=== PATIENT | female | born 1965 | race Caucasian/White ===

== ENCOUNTER 2017-01-26 12:08 | Emergency (ER) | payer BC ==
[2017-01-26 12:43] VITALS: BP 137/49
--- NOTE | 2017-01-26 13:07 | UC ---
Complaint Female HPI - HPI Summary HPI Summary: SINCE THIS AM, URINARY FREQUENCY URGENCY. NO FEVER. NO BACK PAIN. NO ABDOMINAL PAIN. LAST UTI 30YRS AGO. - History Of Current Complaint Chief Complaint: UCGU Stated Complaint: URINARY ISSUE Time Seen by Provider: 01/26/17 12:37 Hx Obtained From: Patient Hx Last Menstrual Period: 01/22/17 Onset/Duration: Sudden Onset, Lasting Hours, Still Present Timing: Intermittent Severity Initially: Mild Severity Currently: Mild Character: Dull Aggravating Factor(s): Urination Associated Signs And Symptoms: Negative: Fever, Back Pain, Nausea, Genital Swelling, Genital Blisters - Risk Factors Ectopic Risk Factor: Negative Ovarian Torsion Risk Factor: Negative - Allergies/Home Medications Allergies/Adverse Reactions: Allergies Allergy/AdvReac Type Severity Reaction Status Date / Time Latex Allergy Intermediate Rash And Verified 01/26/17 12:45 Itching Home Medications: Home Medications Hydrochlorothiazide TAB* [Hydrodiuril TAB*] 25 mg PO DAILY 01/26/17 [History Confirmed 01/26/17] Lactobacillus [Probiotic] 1 cap PO DAILY 01/26/17 [History Confirmed 01/26/17] Levothyroxine TAB* [Synthroid TAB*] 50 mcg PO DAILY 01/26/17 [History Confirmed 01/26/17] Lisinopril [Zestril 5 MG-] 5 mg PO DAILY 01/26/17 [History Confirmed 01/26/17] PMH/Surg Hx/FS Hx/Imm Hx Previously Healthy: Yes Endocrine History Of: Reports: 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 1990 C SECTION AND BTL [facility] [place]. 2006 [facility] [place] - Family History Known Family History: Negative: Renal Disease - Social History Occupation: Employed Full-time Lives: With Family Alcohol Use: None Substance Use Type: None Smoking Status (MU): Never Smoked Tobacco - Immunization History Most Recent Tetanus Shot: 07/2012 Review of Systems Constitutional: Negative Skin: Negative Eyes: Negative ENT: Negative Respiratory: Negative Cardiovascular: Negative Gastrointestinal: Negative Genitourinary: Dysuria, Frequency, Urgency Motor: Negative Neurovascular: Negative Musculoskeletal: Negative Neurological: Negative Psychological: Negative All Other Systems Reviewed And Are Negative: Yes Physical Exam Triage Information Reviewed: Yes Appearance: Well-Appearing, No Pain Distress, Well-Nourished Vital Signs: Initial Vital Signs Temp 98 F 01/26/17 12:31 Pulse 79 01/26/17 12:31 Resp 14 01/26/17 12:31 BP 137/49 01/26/17 12:31 Pulse Ox 100 01/26/17 12:31 Vital Signs Reviewed: Yes Eye Exam: Normal Eyes: Positive: Conjunctiva Clear ENT Exam: Normal ENT: Positive: Normal ENT inspection, Hearing grossly normal, Pharynx normal Dental Exam: Normal Neck exam: Normal Neck: Positive: Supple, Nontender, No Lymphadenopathy Respiratory Exam: Normal Respiratory: Positive: Chest non-tender, Lungs clear, Normal breath sounds, No respiratory distress, No accessory muscle use Cardiovascular Exam: Normal Cardiovascular: Positive: RRR, No Murmur, Pulses Normal, Brisk Capillary Refill Abdominal Exam: Normal Abdomen Description: Positive: Nontender, No Organomegaly, Soft. Negative: CVA Tenderness (R), CVA Tenderness (L) Musculoskeletal Exam: Normal Neurological Exam: Normal Psychological Exam: Normal Skin Exam: Normal Complaint Female Dx - Differential Dx/Diagnosis Differential Diagnosis/HQI/PQRI: Renal Colic, Urinary Tract Infection Provider Diagnoses: URINARY TRACT INFECTION Discharge - Discharge Plan Condition: Stable Disposition: HOME Prescriptions: Phenazopyridine TAB* [Pyridium 100 mg TAB*] 100 mg PO TID #15 tab Sulfamethox/Trimethoprim DS* [Bactrim DS 800/160 TAB*] 1 tab PO BID #10 tab Patient Education Materials: Urinary Tract Infection in Women (ED) Referrals: Ron Josue MD [Primary Care Provider] -
== END 2017-01-26 13:11 | disposition home or self-care (01) ==
LOC: UCEAST 12:08
DX: N39.0 Urinary tract infection, site not specified (principal); R73.03 Prediabetes; E03.9 Hypothyroidism, unspecified; I10 Essential (primary) hypertension; J45.909 Unspecified asthma, uncomplicated; Z90.49 Acquired absence of other specified parts of digestive tract; Z91.040 Latex allergy status
CPT/HCPCS: 81003; 87086; 99212; G0463

== ENCOUNTER 2018-05-10 10:07 | Emergency (ER) | payer BC ==
[2018-05-10 10:20] VITALS: BP 151/95
--- NOTE | 2018-05-10 10:33 | UC ---
Hip/Pelvis Pain - HPI Summary HPI Summary: A 52 y/o F presents to [facility] [place] with c/o ongoing R hip pain onset a few weeks ago. The pain is described as dull and throbbing when at rest, and becomes excruciating when she walks. The pain radiates to her buttocks and down her RLE. Pt has used heat/ice, IBP 600mg daily, to intermittent relief. Pt can ambulate but limps. Pt is on a workout regime, and has lost weight 60+ lbs over two years. She denies any trauma other than rolling one time while working out. Denies fever, chills. She states feeling healthy otherwise. She has knee pain at baseline. Denies recent tick exposure. - History Of Current Complaint Chief Complaint: UCLowerExtremity Stated Complaint: HIP PAIN Time Seen by Provider: 05/10/18 10:26 Hx Obtained From: Patient Hx Last Menstrual Period: 01/22/17 Onset/Duration: Lasting Weeks, Still Present Severity Currently: Moderate Pain Intensity: 6 Pain Scale Used: 0-10 Numeric Location: Discrete At: - R hip, Radiates To: - to buttocks and RLE Character Of Pain: Dull, Throbbing Aggravating Factor(s): Movement, Weight Bearing Alleviating Factor(s): Heat, Cold, OTC Medications Associated Signs And Symptoms: Negative: Fever, Knee Pain, Other - neg: chills - Allergies/Home Medications Allergies/Adverse Reactions: Allergies Allergy/AdvReac Type Severity Reaction Status Date / Time ciprofloxacin [From Cipro] Allergy Unknown Verified 05/10/18 10:20 Reaction Details latex Allergy Rash And Verified 05/10/18 10:20 Itching PMH/Surg Hx/FS Hx/Imm Hx Previously Healthy: No - pos: knee pain Endocrine History: Diabetes - pre-DM, Thyroid Disease - hypo Cardiovascular History: Hypertension Respiratory History: Asthma - Surgical History Surgical History: Yes Surgery Procedure, Year, and Place: 1986 C SECTION [facility] [place]. 1990 C SECTION AND BTL [facility] [place]. 2006 [facility] [place] - Family History Known Family History: Negative: Renal Disease - Social History Occupation: Employed Full-time Lives: With Family Alcohol Use: None Substance Use Type: None Smoking Status (MU): Never Smoked Tobacco - Immunization History Most Recent Tetanus Shot: 07/2012 Review of Systems Constitutional: Other - neg: fever, chills Musculoskeletal: Arthralgia - R hip pain All Other Systems Reviewed And Are Negative: Yes Physical Exam - Summary Physical Exam Summary: General: well-appearing, no pain distress Skin: warm, color reflects adequate perfusion, dry Head: normal Eyes: EOMI, ARMIDA ENT: normal Neck: supple, nontender Respiratory: CTA, breath sounds present Cardiovascular: RRR Abdomen: soft, nontender Bowel: present Musculoskeletal: Tenderness to palpation on R sciatic to distribution of buttock and with compression of the greater trochanter. Neurological: sensory/motor intact, A&O x3 Psychological: affect/mood appropriate Triage Information Reviewed: Yes Vital Signs: Initial Vital Signs Temp 98.3 F 05/10/18 10:16 Pulse 66 05/10/18 10:16 Resp 18 05/10/18 10:16 BP 151/95 05/10/18 10:16 Pulse Ox 100 05/10/18 10:16 Vital Signs Reviewed: Yes Diagnostics - Laboratory Diagnostic Studies Completed/Ordered: R HIP/PELVIS XR as read by radiologist: IMPRESSION: Negative exam. [facility] provider has reviewed this report. Re-Evaluation - Re-Evaluation 1 Re-Evaluation Time: 11:25 Change: Unchanged Comment: Discussing XR results with pt and plans for dispo. Pt voiced understanding. Hip Injury Course/Dx - Course Course Of Treatment: BP noted and advised to follow up with PCP. Medications reviewed. Allergies noted. NO WEAKNESS/NUMBNESS. DISCUSSED X-RAY RESULTS WITH THE PATIENT. DISCUSSED REST AND F/U PMD. - Differential Dx/Diagnosis Provider Diagnoses: RIGHT HIP PAIN. RIGHT SCIATICA. HTN Discharge - Sign-Out/Discharge Documenting (check all that apply): Patient Departure - DC All imaging exams completed and their final reports reviewed: Yes - Discharge Plan Condition: Stable Disposition: HOME Patient Education Materials: Sciatica (ED), Hip Pain (ED) Referrals: Maryam Egan [Primary Care Provider] - Additional Instructions: FOLLOW UP WITH YOUR DOCTOR. GET RECHECKED FOR ANY WORSENING OF YOUR CONDITION OR QUESTIONS OR CONCERNS. Your blood pressure was elevated during todays visit; please follow up with your primary care provider within a week for further evaluation. - Billing Disposition and Condition Condition: STABLE Disposition: Home - Attestation Statements Document Initiated by Scribe: Yes Documenting Scribe: Leonor GreerGalion Community Hospitalcam Provider For Whom Scribe is Documenting (Include Credential): Nick Davies MD Scribe Attestation: I, Leonor Moreno, scribed for Nick Davies MD on 05/10/18 at 1202. Scribe Documentation Reviewed: Yes Provider Attestation: The documentation as recorded by the bethanieibe, Leonor Moreno accurately reflects the service I personally performed and the decisions made by me, Nick Davies MD
--- NOTE | 2018-05-10 11:06 | RAD ---
INDICATION: Right hip pain. COMPARISON: Comparison is made with a prior study from October 10, 2013. TECHNIQUE: An AP view of the pelvis and frontal and lateral views of the right hip were obtained. FINDINGS: The bones are in normal alignment. No fracture is seen. Joint spaces appear maintained. IMPRESSION: NEGATIVE EXAM.
== END 2018-05-10 11:38 | disposition home or self-care (01) ==
LOC: UCEAST 10:07
DX: M25.551 Pain in right hip (principal); M54.31 Sciatica, right side; I10 Essential (primary) hypertension; M25.569 Pain in unspecified knee; Z88.1 Allergy status to other antibiotic agents; Z91.040 Latex allergy status
CPT/HCPCS: 99211; G0463

== ENCOUNTER 2018-09-07 12:52 | Emergency (ER) | payer BC ==
[2018-09-07 13:10] VITALS: BP 131/77
--- NOTE | 2018-09-07 13:22 | UC ---
General HPI - HPI Summary HPI Summary: Pt presents to stating x 3 days had had episodes of dizziness. Pt states first occured when woke up 3 days ago. States has reoccurred 7-8 times since. episodes < 20 min no nausea, vomiting. No cp, sob, abd pain. no fever, chills. no head congestion, ear pain, sore throat. no sick contacts. No h/o similar. Pt states sx worse when closed Pt called pcp yesterday, unable to get appt until next week. Pt without cardiac hx. Pt previous borderline htn, dm - recent lost 50+ pounds and conditions improved Pt's medications reviewed this visit - History of Current Complaint Chief Complaint: UCDizziness Stated Complaint: DIZZINESS Time Seen by Provider: 09/07/18 13:21 Hx Obtained From: Patient Hx Last Menstrual Period: 01/22/17 Pain Intensity: 0 - Allergy/Home Medications Allergies/Adverse Reactions: Allergies Allergy/AdvReac Type Severity Reaction Status Date / Time ciprofloxacin [From Cipro] Allergy Unknown Verified 09/07/18 14:28 Reaction Details latex Allergy Rash And Verified 09/07/18 14:28 Itching PMH/Surg Hx/FS Hx/Imm Hx Previously Healthy: Yes Endocrine History: Diabetes - pre-dm - improved with weightliss, Thyroid Disease Cardiovascular History: Hypertension - borderline - Surgical History Surgical History: Yes Surgery Procedure, Year, and Place: 1986 C SECTION [facility] [place]. 1990 C SECTION AND BTL [facility] [place]. 2006 [facility] [place]. knee surgery, meniscus - Family History Known Family History: Positive: Non-Contributory Negative: Renal Disease - Social History Lives: With Family Alcohol Use: Rare Substance Use Type: None Smoking Status (MU): Never Smoked Tobacco - Immunization History Most Recent Tetanus Shot: 07/2012 Review of Systems All Other Systems Reviewed And Are Negative: Yes Constitutional: Positive: Negative Skin: Positive: Negative Eyes: Positive: Negative ENT: Positive: Negative Respiratory: Positive: Negative Cardiovascular: Positive: Negative Gastrointestinal: Positive: Negative Genitourinary: Positive: Negative Musculoskeletal: Positive: Negative Neurological: Positive: Other - dizziness Psychological: Positive: Negative Physical Exam - Summary Physical Exam Summary: Vital Signs Reviewed: Yes A+Ox3, no distress Eyes: Conjunctiva Clear, ARMIDA. EOM intact and full, no nystagmus, unable to provoke sx ENT: Hearing grossly normal TM x 2 clear, tubinates wnl, mmoist, uvula midline , no exudate, no erythema Neck: Positive: Supple Respiratory: Positive: No respiratory distress, No accessory muscle use + CTA throughout no w/r Cardiovascular: RRR nl s1, s2 no m/r CBT <2 sec, no bruits abd soft + BS nt/nd no guarding, no distension Musculoskeletal Exam: WALL x 4 without difficulty Strength Intact, ROM Intact Neurological: Positive: Alert, + sensation throughout CN 2-12 intact and full + FNF b/l + heel/harvey b/l 5/5 abduction, flex/ext elbow, wrist against resistant 5/5 SLE, flex/ext knee, ankle + great toe extension + gross sensation throughout neg rhomberg Psychological: Positive: Normal Response To Family Skin: Positive: no rash, no ecchymosis Triage Information Reviewed: Yes Vital Signs: Initial Vital Signs Temp 97.6 F 09/07/18 13:07 Pulse 70 09/07/18 13:07 Resp 16 09/07/18 13:07 BP 131/77 09/07/18 13:07 Pulse Ox 100 09/07/18 13:07 Diagnostics - EKG Cardiac Rate: NL, Other Rate - einverted T wave V1-V4, 3 low amplitude Cardiac Rhythm: Sinus: Normal Course/Dx - Course Course Of Treatment: Pt with episodes of dizziness x 3 days. no current sx. pt denies other sx, or h/o similar. on exam, normal neuro exam, no nystagmus. FSBG 84. EKG with inverted T wave - no old for comparison. d/w pt at length - recommend ED assessment. Pt called to drive. report given Dr. West. pt in agreement - will transfer by PO - Diagnoses Provider Diagnosis: Dizziness Discharge - Sign-Out/Discharge Documenting (check all that apply): Patient Departure All imaging exams completed and their final reports reviewed: No Studies - Discharge Plan Condition: Stable Disposition: HOME-RECOMMEND TO ED Patient Education Materials: Dizziness (ED) Referrals: Maryam Junior NP [Primary Care Provider] - Additional Instructions: The doctor that evaluated you today thinks that you need additional testing that can be completed the emergency department. It is recommended that you go directly to emergency department for further evaluation. This evaluation may include blood work or imaging. This testing will be directed and decided by the provider that evaluate you at the emergency department. If pain becomes worse, you feel lightheaded, you have uncontrolled vomiting, or you have any other concerns while you are being driven to emergency department as recommended to stephanie and contact 911. - Billing Disposition and Condition Condition: STABLE Disposition: Home-Recommend to ED
== END 2018-09-07 13:50 | disposition home health service (06) ==
LOC: UCEAST 12:52
DX: R42 Dizziness and giddiness (principal); Z88.1 Allergy status to other antibiotic agents; Z91.040 Latex allergy status
CPT/HCPCS: 93005; 99212; G0463

== ENCOUNTER 2018-09-07 14:12 | Emergency (ER) | payer BC ==
[2018-09-07 15:14] LABS: ABS Basophils 0.1 10^3/ul (0-0.2); ABS Eosinophils 0.1 10^3/ul (0-0.6); ABS Lymphocytes 1.9 10^3/ul (1.0-4.8); ABS Monocytes 0.4 10^3/ul (0-0.8); ABS Neutrophils 3.7 10^3/ul (1.5-7.7); ABS Nucleated RBC 0 10^3/ul; Eosinophil % 2.1 %; Hematocrit 41 % (35-47); Hemoglobin 13.8 g/dl (12.0-16.0); Lymphocyte % 30.1 %; Mean Corpuscular HGB Conc 34 g/dl (31-36); Mean Corpuscular Hemoglobin 31 pg (27-31); Mean Corpuscular Volume 91 fL (80-97); Mean Platelet Volume 7.5 fL (7.4-10.4); Nucleated Red Blood Cells % 0; Platelet Count 240 10^3/ul (150-450); Red Blood Count 4.47 10^6/ul (4.00-5.40); Red Cell Distribution Width 14 % (10.5-15); White Blood Count 6.2 10^3/ul (3.5-10.8)
[2018-09-07] MEDS ORDERED: NS 0.9% 1000 ML* 2,000 ML IV ONE (15:21)
[2018-09-07] MEDS ORDERED: Ondansetron INJ* 2 MG/ML VIAL IV ONE (15:22)
[2018-09-07] MEDS ORDERED: Meclizine TAB* 12.5 MG PO ONE (15:22)
[2018-09-07 15:27] LABS: Activated Partial Thrombo Time 30.2 seconds (26.0-36.3); INR 0.86 (0.77-1.02)
[2018-09-07 15:43] LABS: Albumin 4.2 g/dL (3.2-5.2); Albumin/Globulin Ratio 1.5 (1-3); BUN/Creatinine Ratio 18.8 (8-20); Calcium 10.4 mg/dL (8.6-10.3); EGFR Non-African American 97.8 (>60); Globulin 2.8 g/dL (2-4); Magnesium 2.1 mg/dL (1.9-2.7); Potassium 4.1 mmol/L (3.5-5.0); Total Bilirubin 0.3 mg/dL (0.2-1.0)
[2018-09-07 15:55] LABS: Urine Appearance Clear; Urine Bacteria 1+ (Absent); Urine Bilirubin Negative (Negative); Urine Blood 1+ (Negative); Urine Color Straw; Urine Glucose Negative (Negative); Urine Ketones Negative (Negative); Urine Nitrite Negative (Negative); Urine Protein Negative (Negative); Urine Red Blood Cell Trace(0-2/hpf) (Absent); Urine Urobilinogen Negative (Negative); Urine White Blood Cell Trace(0-5/hpf) (Absent)
--- NOTE | 2018-09-07 16:22 | ED ---
Dizziness - HPI Summary HPI Summary: A 53 y/o female presents to [facility] with a chief complaint of dizziness since . The patient rates her pain as 0/10. She describes the dizziness as room- spinning and also c/o lightheadedness with some nausea. She denies CP, SOB, palpitations, ear ache, nasal congestion or runny nose. She denies a Hx of bloodclots in her legs or lungs. She reports a FHx of cardiac disease, stating that her mother has had two pacemakers. She denies a Hx of DM, and states that she was taken off of her BP meds after losing weight. She claims that she has been keeping hydrated. She states that she has not been to a ice cream vendor. - History Of Current Complaint Chief Complaint: EDChestPainROMI Stated Complaint: DIZZY, WEAK Time Seen by Provider: 09/07/18 15:02 Hx Obtained From: Patient Onset/Duration: Unknown Timing: Days Severity Initially: Mild Severity Currently: Mild Character: Room Spinning Alleviating Factor(s): Nothing Associated Signs And Symptoms: Positive: Negative - ear ache, nasal congestion or runny nose, Other: - lightheaded. Negative: Chest Pain, SOB, Palpitations, Fever - Allergies/Home Medications Allergies/Adverse Reactions: Allergies Allergy/AdvReac Type Severity Reaction Status Date / Time ciprofloxacin [From Cipro] Allergy Unknown Verified 09/07/18 14:28 Reaction Details latex Allergy Rash And Verified 09/07/18 14:28 Itching Home Medications: Home Medications Ropinirole TAB* [Requip TAB*] 0.5 mg PO BEDTIME 09/07/18 [History Confirmed ] PMH/Surg Hx/FS Hx/Imm Hx Endocrine/Hematology History: Reports: Hx Thyroid Disease - hypo Comment Only: Hx Diabetes - states borderline pre diabetic Cardiovascular History: Reports: Hx Hypertension Respiratory History: Reports: Hx Asthma - reactive airway with uri inst to bring inhaller Sensory History: Reports: Hx Contacts or Glasses - GLASSES Denies: Hx Hearing Aid Opthamlomology History: Reports: Hx Contacts or Glasses - GLASSES - Surgical History Surgery Procedure, Year, and Place: 1986 [place] [facility] [place] [facility] [place] [facility] [place] knee surgery, meniscus Hx Anesthesia Reactions: No Infectious Disease History: No Infectious Disease History: Denies: Traveled Outside the [place] in Last 30 Days - Family History Known Family History: Negative: Renal Disease - Social History Alcohol Use: None Substance Use Type: Reports: None Smoking Status (MU): Never Smoked Tobacco Review of Systems Negative: Fever ENT: Negative - nasal congestion Negative: Ear Ache, Nasal Discharge Negative: Palpitations, Chest Pain Negative: Shortness Of Breath Positive: Nausea Neurological: Other - positive: dizziness, lightheadedness All Other Systems Reviewed And Are Negative: Yes Physical Exam - Summary Physical Exam Summary: GENERAL: Patient is a well-developed and nourished F who is lying comfortable in the stretcher. Patient is not in any acute respiratory distress. HEAD AND FACE: Normocephalic EYES: PERRLA, EOMI x 2. EARS: Hearing grossly intact. MOUTH: Oropharynx within normal limits. NECK: Supple, trachea is midline, no adenopathy, no JVD, no carotid bruit. CHEST: Symmetric, no tenderness at palpation LUNGS: Clear to auscultation bilaterally. No wheezing or crackles. CVS: Regular rate and rhythm, S1 and S2 present, no murmurs or gallops appreciated. ABDOMEN: Soft, non-tender. Bowel sounds are normal. No abdominal abnormal pulsations. EXTREMITIES: Full ROM in all major joints, no edema, no cyanosis or clubbing. NEURO: Alert and oriented x 3. No acute neurological deficits. Speech is normal and follows commands. SKIN: Dry and warm Neuro exam extended: Cranial nerves II-XII grossly intact, no dysmetria finger to nose, nml heel to harvey GCS: 15 Triage Information Reviewed: Yes Vital Signs On Initial Exam: Initial Vitals Temp Pulse Resp BP Pulse Ox 97.9 F 69 16 176/92 100 09/07/18 14:27 09/07/18 14:27 09/07/18 14:27 09/07/18 14:27 09/07/18 14:27 Vital Signs Reviewed: Yes Diagnostics - Vital Signs Vital Signs Temp Pulse Resp BP Pulse Ox 09/07/18 15:12 66 19 160/85 99 09/07/18 14:27 97.9 F 69 16 176/92 100 - Laboratory Lab Results: Lab Results 09/07/18 09/07/18 09/07/18 Range/Units 15:03 15:03 15:03 WBC 6.2 (3.5-10.8) 10^3/ul RBC 4.47 (4.00-5.40) 10^6/ul Hgb 13.8 (12.0-16.0) g/dl Hct 41 (35-47) % MCV 91 (80-97) fL MCH 31 (27-31) pg MCHC 34 (31-36) g/dl RDW 14 (10.5-15) % Plt Count 240 (150-450) 10^3/ul MPV 7.5 (7.4-10.4) fL Neut % (Auto) 60.4 % Lymph % (Auto) 30.1 % [place] % (Auto) 6.3 % Eos % (Auto) 2.1 % Baso % (Auto) 1.1 % Absolute Neuts (auto) 3.7 (1.5-7.7) 10^3/ul Absolute Lymphs (auto) 1.9 (1.0-4.8) 10^3/ul Absolute Monos (auto) 0.4 (0-0.8) 10^3/ul Absolute Eos (auto) 0.1 (0-0.6) 10^3/ul Absolute Basos (auto) 0.1 (0-0.2) 10^3/ul Absolute Nucleated RBC 0 10^3/ul Nucleated RBC % 0 INR (Anticoag Therapy) 0.86 (0.77-1.02) APTT 30.2 (26.0-36.3) seconds D-Dimer, Quantitative < 200 (Less Than 230) ng/mL Sodium 139 (135-145) mmol/L Potassium 4.1 (3.5-5.0) mmol/L Chloride 106 (101-111) mmol/L Carbon Dioxide 28 (22-32) mmol/L Anion Gap 5 (2-11) mmol/L BUN 12 (6-24) mg/dL Creatinine 0.64 (0.51-0.95) mg/dL Est GFR ( Amer) 118.4 (>60) Est GFR (Non-Af Amer) 97.8 (>60) BUN/Creatinine Ratio 18.8 (8-20) Glucose 100 (70-100) mg/dL Lactic Acid (0.5-2.0) mmol/L Calcium 10.4 H (8.6-10.3) mg/dL Magnesium 2.1 (1.9-2.7) mg/dL Total Bilirubin 0.30 (0.2-1.0) mg/dL AST 14 (13-39) U/L ALT 12 (7-52) U/L Alkaline Phosphatase 61 (34-104) U/L Troponin I 0.00 (<0.04) ng/mL B-Natriuretic Peptide (<=100) pg/mL Total Protein 7.0 (6.4-8.9) g/dL Albumin 4.2 (3.2-5.2) g/dL Globulin 2.8 (2-4) g/dL Albumin/Globulin Ratio 1.5 (1-3) Urine Color Urine Appearance Urine pH (5-9) Ur Specific [place] (1.010-1.030) Urine Protein (Negative) Urine Ketones (Negative) Urine Blood (Negative) Urine Nitrate (Negative) Urine Bilirubin (Negative) Urine Urobilinogen (Negative) Ur Leukocyte Esterase (Negative) Urine WBC (Auto) (Absent) Urine RBC (Auto) (Absent) Ur Squamous Epith Cells (Absent) Urine Bacteria (Absent) Urine Glucose (Negative) 09/07/18 09/07/18 09/07/18 Range/Units 15:03 15:03 15:35 WBC (3.5-10.8) 10^3/ul RBC (4.00-5.40) 10^6/ul Hgb (12.0-16.0) g/dl Hct (35-47) % MCV (80-97) fL MCH (27-31) pg MCHC (31-36) g/dl RDW (10.5-15) % Plt Count (150-450) 10^3/ul MPV (7.4-10.4) fL Neut % (Auto) % Lymph % (Auto) % [place] % (Auto) % Eos % (Auto) % Baso % (Auto) % Absolute Neuts (auto) (1.5-7.7) 10^3/ul Absolute Lymphs (auto) (1.0-4.8) 10^3/ul Absolute Monos (auto) (0-0.8) 10^3/ul Absolute Eos (auto) (0-0.6) 10^3/ul Absolute Basos (auto) (0-0.2) 10^3/ul Absolute Nucleated RBC 10^3/ul Nucleated RBC % INR (Anticoag Therapy) (0.77-1.02) APTT (26.0-36.3) seconds D-Dimer, Quantitative (Less Than 230) ng/mL Sodium (135-145) mmol/L Potassium (3.5-5.0) mmol/L Chloride (101-111) mmol/L Carbon Dioxide (22-32) mmol/L Anion Gap (2-11) mmol/L BUN (6-24) mg/dL Creatinine (0.51-0.95) mg/dL Est GFR ( Amer) (>60) Est GFR (Non-Af Amer) (>60) BUN/Creatinine Ratio (8-20) Glucose (70-100) mg/dL Lactic Acid 0.7 (0.5-2.0) mmol/L Calcium (8.6-10.3) mg/dL Magnesium (1.9-2.7) mg/dL Total Bilirubin (0.2-1.0) mg/dL AST (13-39) U/L ALT (7-52) U/L Alkaline Phosphatase (34-104) U/L Troponin I (<0.04) ng/mL B-Natriuretic Peptide 62 (<=100) pg/mL Total Protein (6.4-8.9) g/dL Albumin (3.2-5.2) g/dL Globulin (2-4) g/dL Albumin/Globulin Ratio (1-3) Urine Color Straw Urine Appearance Clear Urine pH 6.0 (5-9) Ur Specific [place] 1.010 (1.010-1.030) Urine Protein Negative (Negative) Urine Ketones Negative (Negative) Urine Blood 1+ A (Negative) Urine Nitrate Negative (Negative) Urine Bilirubin Negative (Negative) Urine Urobilinogen Negative (Negative) Ur Leukocyte Esterase Negative (Negative) Urine WBC (Auto) Trace(0-5/hpf) (Absent) Urine RBC (Auto) Trace(0-2/hpf) (Absent) Ur Squamous Epith Cells Present A (Absent) Urine Bacteria 1+ A (Absent) Urine Glucose Negative (Negative) Result Diagrams: 09/07/18 15:03 09/07/18 15:03 Lab Statement: Any lab studies that have been ordered have been reviewed, and results considered in the medical decision making process. - Radiology CXR Radiology Interpretation Completed By: Radiologist Summary of Radiographic Findings: No evidence for acute intrathoracic disease. ED physician has reviewed this imaging report. - CT Brain CT Interpretation Completed By: Radiologist Summary of CT Findings: No acute intracranial pathology. ED physician has reviewed this imaging report. - EKG 14:32 Cardiac Rate: NL - 68 bpm EKG Rhythm: Sinus Rhythm - NSR at 68 bpm with inverted T waves seen in v1-v3 Re-Evaluation - Re-Evaluation First Eval Re-Evaluation Time: 16:50 Change: Unchanged Comment: Patient still reports dizziness. Dizzy Course/Dx - Course Course Of Treatment: A 53 y/o female presents to [facility] with a chief complaint of dizziness since 08/31/18. The patient rates her pain as 0/10. Workup is remarkable with a normal physical exam. EKG revealed NSR at 68 bpm with inverted T waves seen in v1-v3. CXR impression: No evidence for acute intrathoracic disease. Brain CT impression: No acute intracranial pathology. Lab results obtained and WNL. In the ED course the patient was given Zofran and Sodium Chloride IV. After discussing the case with Dr. Knight, Hospitalist, he will see the patient in the ED. Dr. Knight saw the patient in the ED and handled the discharge. Dx: abnormal EKG, dizziness. - Diagnoses Provider Diagnoses: Abnormal EKG, Dizziness - Provider Notifications Discussed Care Of Patient With: Stan Knight Time Discussed With Above Provider: 17:00 Instructed by Provider To: MD Will See In ED - After seeing the patient in the ED, Dr. Knight states that he will discharge the patient. Discharge - Sign-Out/Discharge Documenting (check all that apply): Patient Departure - DC - Discharge Plan Condition: Stable Disposition: HOME Patient Education Materials: Benign Paroxysmal Positional Vertigo (ED) Referrals: Maryam Junior NP [Primary Care Provider] - [employer] Employee,HOWIE [Medical Doctor] - Additional Instructions: Please follow-up with [facility]. You were diagnosed with benign paroxysmal positional vertigo. Arin maneuvers can help. Get up slowly and turn your head slowly. Follow-up with your PCP. - Billing Disposition and Condition Condition: STABLE Disposition: Home - Attestation Statements Document Initiated by Scribe: Yes Documenting Scribe: Lele Davis Provider For Whom Scribe is Documenting (Include Credential): Marely West MD Scribe Attestation: I, Lele Davis, scribed for Marely West MD on 09/10/18 at 1110. Scribe Documentation Reviewed: Yes Provider Attestation: The documentation as recorded by the scribe, Lele Davis accurately reflects the service I personally performed and the decisions made by me, Patria West MD Status of Scribe Document: Viewed
[2018-09-07 17:56] VITALS: BP 177/95
--- NOTE | 2018-09-07 20:53 | CONS ---
CONSULTATION REPORT: DATE OF CONSULT: 09/07/18 CONSULTING PHYSICIAN: Stan Knight MD REFERRING PHYSICIAN: Dr. West, emergency room. PRIMARY CARE DOCTOR: Maryam Orlando of [facility]. REASON FOR CONSULT: Chief complaint of dizziness and referred for admission with concern for possible inferior stroke to be ruled out. CHIEF COMPLAINT: Dizziness, lightheadedness, spinning sensation, unstable gait. HISTORY OF PRESENT ILLNESS: Jerri Witt is a 53-year-old female with past medical history of obesity and former prediabetes, both improved after exercise program losing 64 pounds over the last 2-1/2 years. She has been in her regular state of health except for the last week she has had progressive worsening dizziness, lightheadedness and occasional sensations of world spinning , especially when she wakes up in the morning and lifts her head up off the bed. She has almost fallen on occasion, but has not yet done that. She denies any fever, chills, nausea, vomiting, chest pain, shortness of breath, headaches , skin changes or sick contacts. She was not able to establish followup with her primary care until after the New Year, so she went to urgent care, who then referred her to the ED. Her workup has been unremarkable including CT of the head, which showed no acute intracranial pathology; a chest x-ray, which demonstrated no evidence for acute intrathoracic disease. She did have an EKG, which showed some T-wave inversions in V1 and flattening in V2 to V3. She does have some Q-waves inferiorly. No ST elevations or depressions. She denies any chest pain. She works out the exercises and never had chest pain with that either. She is never a smoker and as I said referred for admission. PAST MEDICAL HISTORY: Prediabetes, obesity that has been improving with intentional diet and weight loss and exercise program. PAST SURGICAL HISTORY: Cholecystectomy, uterine ablation, C-sections, right knee arthroscopies. MEDICATIONS: Include: 1. Ropinirole. 2. Synthroid. 3. Ibuprofen. 4. Hydrochlorothiazide. ALLERGIES: Include CIPRO. FAMILY HISTORY: Does not know much. Both of them are alive at age 75. Mother has a pacemaker and heart disease. 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 She is a rare drinker, never smoker. She is a full code. She is accompanied by her , Dickson Witt. REVIEW OF SYSTEMS: A complete 14-point review of systems negative except as per HPI. PHYSICAL EXAM: General Appearance: No acute distress, sitting in the hospital bed. Vital Signs: Temperature 97.9, heart rate 69, respiratory rate 16, satting 100% on room air, blood pressure 160/85. HEENT: Normocephalic, atraumatic. Pupils are equal, round, and reactive to light. Extraocular motions are intact. No scleral icterus. Moist mucous membranes. Neck: Supple. No cervical lymphadenopathy. Lungs: Clear to auscultation bilaterally with no wheezing, rales, or rhonchi. Cardiovascular: Regular rate and rhythm. No murmurs, rubs, or gallops. Abdomen: Soft, nontender, and nondistended. Extremities: Warm and well perfused. No peripheral edema. Skin : No lesions. No rashes. Neuro: Cranial nerves II through XII intact. Automobile Rental Agent strength 5/5. Hip flexion, knee extension, biceps, triceps all 5/5. Sensation intact. Mildly dizzy on Romberg. Has a bit of careful wide-based gait and is much slower on heel-to-toe walking. She has a positive Alisa-Hallpike testing when looking to the right and also some slight nystagmus on eye movements to the right only. DIAGNOSTIC STUDIES/LAB DATA: Labs include white count of 6.2, hemoglobin 13.8, hematocrit 41, platelets 240. INR 0.86. Sodium 139, potassium 4.1, chloride 106, carbon dioxide 28, BUN 12, creatinine 0.64, glucose 100, lactic acid 0.7. Calcium 10.4, slightly high. Magnesium 2.1. Albumin 4.2. Corrected calcium within normal limits. BNP is 62. Troponin 0.00 x2. Urinalysis: 1+ blood, 1+ bacteria, squamous epithelial cells present. Imaging: As above. EKG: As above. ASSESSMENT AND PLAN: Jerri Witt is a 53-year-old female with morbid obesity , presenting with 1 week of progressive dizziness, spinning sensations and lightheadedness. She has positive Tatum-Hallpike testing onto the right and no other focal neurological deficits. Head thrust was negative, though limited study as the patient was not compliant with relaxation beforehand. She is being diagnosed with presumptive diagnosis of benign positional paroxysmal vertigo. Given information sheet on Arin maneuvers and referral to [facility]. We have also given instructions not to move her head quickly and likely should not drive in the next couple of days until symptoms improve. Thank you for this interesting consult. [id number]/DANIE #: [id number] ANA LAURA
== END 2018-09-07 17:56 | disposition home or self-care (01) ==
LOC: ED 14:12
DX: R94.31 Abnormal electrocardiogram [ECG] [EKG] (principal); R42 Dizziness and giddiness
CPT/HCPCS: 36415; 70450; 71045; 80053; 81003; 81015; 83605; 83735; 83880; 84484; 85025; 85379; 85610; 85730; 87086; 93005; 96361; 96374; 99282; A9270-GY; J2405

== ENCOUNTER 2019-06-19 06:01 | Inpatient (IN) | payer BC ==
--- NOTE | 2019-06-06 14:23 | HP ---
PREOPERATIVE HISTORY AND PHYSICAL: DATE OF ADMISSION: 06/19/19 DATE OF OFFICE VISIT: 06/06/19 ATTENDING PHYSICIAN: Dr. Maribel Blackman.* (DICTATED BY MARS BARRETT) PROCEDURE SCHEDULED: Right total knee arthroplasty. CHIEF COMPLAINT: Right knee pain. HISTORY OF PRESENT ILLNESS: Ms. Witt is a 54-year-old female who has had over 7 years of increasingly severe right knee pain. She has pain along the joint line of the knee and has difficulty ambulating more than a block. She has difficulty with stair climbing and standing. She has used anti- inflammatories and has tried cortisone injections as well as physical therapy without relief of her symptoms. She has had a partial meniscectomy of the right knee done by Dr. Mandel many years ago. She now elects to proceed with right total knee arthroplasty. PAST MEDICAL HISTORY: Significant for hypertension, asthma, osteoarthritis, hypothyroidism, morbid obesity. PAST SURGICAL HISTORY: Cholecystectomy, right knee partial meniscectomy, C- section x2. CURRENT MEDICATIONS: 1. Advil 600 mg p.o. b.i.d. 2. Tylenol 325 mg p.o. b.i.d. 3. Hydrochlorothiazide 25 mg daily. 4. Levothyroxine 100 mcg p.o. daily. 5. Ropinirole HCl 0.5 mg 1 tab q.h.s. ALLERGIES: No known drug allergies. FAMILY HISTORY: Negative. SOCIAL HISTORY: The patient lives with her spouse. 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 She does not use tobacco, alcohol, or recreational drugs. REVIEW OF SYSTEMS: A 14-point review of systems reviewed with the patient today. Positive for right knee pain, swelling. She denies fever, chills, chest pain, shortness of breath. Denies gastrointestinal or genitourinary symptoms. PHYSICAL EXAMINATION GENERAL: She is alert and oriented x3, in no acute distress, pleasant and cooperative. VITAL SIGNS: Height 62 inches, weight 238. BP 114/76, respirations 18, temperature 97.9. HEENT: PERRLA. LUNGS: Clear to auscultation without wheeze. HEART: Regular rate and rhythm. No murmur auscultated. ABDOMEN: Soft, nontender, nondistended. Normoactive bowel sounds x4. EXTREMITIES: Lower extremities: Limited to the right lower extremity shows her skin to be clear without open areas or excoriation. She has a moderate effusion. Range of motion 5 degrees to 120 degrees of flexion. No varus or valgus instability. There is tenderness along the medial joint line. Her sensation and circulation are intact distally. DIAGNOSTIC STUDIES: X-ray examination shows severe end-stage osteoarthritis with [id number] contact in the medial and patellofemoral compartments. There is osteophyte formation and subchondral sclerosis. IMPRESSION: Advanced osteoarthritis, right knee. PLAN: The patient has now elected to proceed with right total knee arthroplasty scheduled with Dr. Blackman on 06/19/19. Risks and benefits of the procedure fully discussed by Dr. Blackman today at her office visit, 06/06/19. She will follow up in roughly 10 to 14 days postoperatively. MARS BARRETT [id number]/DANIE #: [id number]
[~2019-06-19 06:01] MED LIST: Buffered Lidocaine 1% SYRIN* 1 ML/SYRINGE INTRADERM ONE; Lactated Ringers 1000 ML Bag* 1,000 ML IV SCH; Tranexamic Acid 1,000 MG in NS 0.9% 50 ML* (outpatient use) IV SCH
--- OUTSIDE RECORDS SUMMARY | 2019-06-19 06:04 | XMS REPORT | Continuity of Care Document ---
:1965 External Reference #:[id number] Author Name Maribel Blackman M.D. (transmitted by agent of provider Staci Martins) Address [address] [place] [address] Care Team Providers Name Role Phone Ron Josue MD - Endocrinology, Care Team Information Licensing Specialist Diabetes & Metabolism Meseret Lizama, N.P. - Family Care Team Information Licensing Specialist [phone] Problems Active Problems Provider Date Localized, primary osteoarthritis Anjelica Goodwin MD Onset: 05/01/2019 Social History Type Date Description Comments Sex Unknown ETOH Use Denies alcohol use Tobacco Use Start: Unknown Patient has never smoked Smoking Status Reviewed: 05/18/19 Patient has never smoked Exercise Type/Frequency Exercises regularly Allergies, Adverse Reactions, Alerts Description No Known Drug Allergies Medications Active Medications SIG Qnty Indications Ordering Date Provider Diclofenac Sodium take 1 by 20tabs M17.11 Anjelica Goodwin, 05/01/[address] mouth twice a MD day as needed for pain Hydrochlorothiazide Meseret Lizama, 25mg Tablets N.P. Levothyroxine Sodium Meseret Lizama, 100mcg N.P. Tablets Ropinirole HCL Take 1 Tablet Unknown 0.5mg Tablets By Mouth AT Bedtime Immunizations Description No Information Available Vital Signs Date Vital Result Comment 05/18/2019 11:23am Height 62 inches 5'2" Weight 220.00 lb patient stated Heart Rate 68 /min BP Systolic 132 mmHg BP Diastolic 84 mmHg Respiratory Rate 16 /min Body Temperature 98.0 F Pain Level 10 BMI (Body Mass Index) 40.2 kg/m2 05/01/2019 3:27pm Height 62 inches 5'2" Weight 232.00 lb Heart Rate 94 /min BP Systolic 110 mmHg BP Diastolic 80 mmHg Body Temperature 97.8 F Pain Level 10 BMI (Body Mass Index) 42.4 kg/m2 Results Description No Information Available Procedures Date Code Description Status 12/13/2017 49846112 Colonoscopy Completed Medical Devices Description No Information Available Encounters Type Date Location Provider Dx Diagnosis Office Visit 05/01/2019 [facility] Anjelica Goodwin MD M17.11 Unilateral primary 2:[facility] oste[facility], right knee Assessments Date Code Description Provider 05/18/2019 M25.561 Pain in right knee Maribel Blackman M.D. 05/18/2019 M25.461 Effusion, right knee Maribel Blackman M.D. 05/18/2019 M17.11 Unilateral primary osteoarthritis, right knee Maribel Blackman M.D. 05/01/2019 M17.11 Unilateral primary osteoarthritis, right knee Anjelica Goodwin MD Plan of Treatment Future Appointment(s):06/06/2019 9:00 am - Maribel Blackman M.D. at [facility]05/18/2019 - Maribel Blackman M.D.M25.561 Pain in right kneeFollow up:Follow up: 7-10 days before pnyymtaP75.461 Effusion, right kneeM17.11 Unilateral primary osteoarthritis, right knee Functional Status Description No Information Available Mental Status Description No Information Available Referrals Description No Information Available
--- OUTSIDE RECORDS SUMMARY | 2019-06-19 06:04 | XMS REPORT | Continuity of Care Document ---
:1965 External Reference #:[id number] Author Name Maribel Blackman M.D. (transmitted by agent of provider Malissa Mcgrath) Address [address] [facility] [address] Care Team Providers Name Role Phone Meseret Lizama N.P. - Family Care Team Information Internal Grinder Tender [phone] Problems Active Problems Provider Date Localized, primary osteoarthritis Anjelica Goodwin MD Onset: 05/01/2019 Social History Type Date Description Comments Sex Unknown ETOH Use Denies alcohol use Tobacco Use Start: Unknown Patient has never smoked Smoking Status Reviewed: 06/06/19 Patient has never smoked Exercise Type/Frequency Exercises [...] Available Vital Signs Date Vital Result Comment 06/06/2019 9:12am Height 62 inches 5'2" Weight 238.00 lb BP Systolic 114 mmHg BP Diastolic 76 mmHg Respiratory Rate 18 /min Body Temperature 97.9 F Pain Level 3 BMI (Body Mass Index) 43.5 kg/m2 05/18/2019 11:23am Height 62 inches 5'2" Weight 220.00 lb patient stated Heart Rate 68 /min BP Systolic 132 mmHg BP Diastolic 84 mmHg Respiratory Rate 16 /min Body Temperature 98.0 F Pain Level 10 BMI (Body Mass Index) 40.2 kg/m2 Results Description No Information Available Procedures Date Code Description Status 12/13/2017 27356421 Colonoscopy Completed Medical Devices Description No Information Available Encounters Type Date Location Provider Dx Diagnosis Office Visit 05/18/2019 [facility] Maribel Blackman M25.561 Pain in right 10:45a [facility] knee M25.461 Effusion, right knee M17.11 Unilateral primary osteoarthritis, right knee Office Visit 05/01/2019 [facility] Anjelica Goodwin M17.11 Unilateral primary 2:45p [facility], [facility] knee Assessments Date Code Description Provider 06/06/2019 M17.11 Unilateral primary osteoarthritis, right knee Maribel Blackman M.D. 06/06/2019 M25.561 Pain in right knee Maribel Blackman M.D. 06/06/2019 M25.461 Effusion, right knee Maribel Blackman M.D. 05/18/2019 M25.561 Pain in right knee Maribel Blackman M.D. 05/18/2019 M25.461 Effusion, right knee Maribel Blackman M.D. 05/18/2019 M17.11 Unilateral primary osteoarthritis, right knee Maribel Blackman M.D. 05/01/2019 M17.11 Unilateral primary osteoarthritis, right knee Anjelica Goodwin MD Plan of Treatment Future Appointment(s):07/02/2019 9:30 am - Maribel Blackman M[facility]D. at [facility]06/19/2019 8:15 am - Maribel Blackman M.D. at [facility]06/06/2019 - Maribel Blackman M.D.M17.11 Unilateral primary osteoarthritis, right kneeFollow up:Follow up: 10-14 days post opM25.561 Pain in right kneeM25.461 Effusion, right knee Functional Status Description No Information Available Mental Status Description No Information Available Referrals Description No Information Available
--- OUTSIDE RECORDS SUMMARY | 2019-06-19 06:04 | XMS REPORT | Continuity of Care Document ---
:1965 External Reference #:[id number] Author Name Maribel Blackman M.D. (transmitted by agent of provider Ronnie Fonseca) Address [address] [place] [address] Care Team Providers Name Role Phone Meseret Lizama N.P. - Family Care Team Information Paint Dipper [phone] Problems Active Problems Provider Date Localized, primary [...] BMI (Body Mass Index) 40.2 kg/m2 Results Test Date Facility Test Result H/L Range Note Inr/Protime 06/06/2019 [facility] Inr 0.92 Normal 0.82-1.[address] [place] [address] [phone] Laboratory test 06/06/2019 [facility] Partial 32.9 seconds Normal 26.0-38.[address] [place] [address] PTT [phone] Urinalysis 06/06/2019 [facility] Urine Color Yellow Profile [address] [place] [address] [phone] Urine Appearance Clear Urine Specific [place] 1.012 Normal 1.010-1.030 Urine pH 7.0 Normal 5-9 Urine Urobilinogen Negative Negative Urine Ketones Negative Negative Urine Protein Negative Negative Urine Leukocytes Negative Negative Urine Blood Negative Negative Urine Nitrite Negative Negative Urine Bilirubin Negative Negative Urine Glucose Negative Negative CBC Auto 06/06/2019 [facility] White Blood 8.8 10^3/uL Normal 3.5-10.[address] [place] [address] [phone] Red Blood Count 4.36 10^6/uL Normal 3.70-4.87 Hemoglobin 13.6 g/dL Normal 12.0-16.0 Hematocrit 40 % Normal 35-47 Mean Corpuscular Volume 91 fL Normal 80-97 Mean Corpuscular Hemoglobin 31 pg Normal 27-31 Mean Corpuscular HGB Conc 34 g/dL Normal 31-36 Red Cell Distribution Width 15 % Normal 10-15 Platelet Count 277 10^3/uL Normal 150-450 Mean Platelet Volume 8.1 fL Normal 7.4-10.4 Abs Neutrophils 5.8 10^3/uL Normal 1.5-7.7 Abs Lymphocytes 2.1 10^3/uL Normal 1.0-4.8 Abs Monocytes 0.6 10^3/uL Normal 0-0.8 Abs Eosinophils 0.2 10^3/uL Normal 0-0.6 Abs Basophils 0.1 10^3/uL Normal 0-0.2 Abs Nucleated RBC 0.0 10^3/uL Granulocyte % 66.2 % Lymphocyte % 23.6 % Monocyte % 6.7 % Eosinophil % 2.3 % Basophil % 1.2 % Nucleated Red Blood Cells % 0.2 Type & Screen 06/06/2019 [facility] Patient Blood Type A Positive [address] [place] [address] [phone] Antibody Screen NEGATIVE Comp Metabolic 06/06/2019 [facility] Sodium 139 mmol/L Normal 135-[address] [place] [address] [phone] Potassium 4.0 mmol/L Normal 3.5-5.0 Chloride 104 mmol/L Normal 101-111 Co2 Carbon Dioxide 30 mmol/L Normal 22-32 Anion Gap 5 mmol/L Normal 2-11 Glucose 75 mg/dL Normal 70-100 Blood Urea Nitrogen 11 mg/dL Normal 6-24 Creatinine 0.57 mg/dL Normal 0.51-0.95 BUN/Creatinine Ratio 19.3 Normal 8-20 Calcium 10.3 mg/dL Normal 8.6-10.3 Total Protein 6.8 g/dL Normal 6.4-8.9 Albumin 4.3 g/dL Normal 3.2-5.2 Globulin 2.5 g/dL Normal 2-4 Albumin/Globulin Ratio 1.7 Normal 1-3 Total Bilirubin 0.40 mg/dL Normal 0.2-1.0 Alkaline Phosphatase 78 U/L Normal 34-104 Alt 20 U/L Normal 7-52 Ast 17 U/L Normal 13-39 Egfr Non- 111.4 >60 Egfr 134.8 >60 2 Urine Culture And 06/06/2019 [facility] Urine Culture SEE RESULT [address] [place] [address] [phone] 1 Standard intensity warfarin therapeutic range: 2.0-3.0 High intensity warfarin therapeutic range: 2.5-3.5 2 Because ethnic data is not always readily available, this report includes an eGFR for both -Americans and non- Americans. The National Kidney Disease Education Program (NKDEP) does not endorse the use of the MDRD equation for patients that are not between the ages of 18 and 70, are , have extremes of body size, muscle mass, or nutritional status, or are non- or non-. According to the National Kidney Foundation, irrespective of diagnosis, the stage of the disease is based on the level of kidney function: Stage Description GFR(mL/min/1.73 m(2)) 1 Kidney damage with normal or decreased GFR 90 2 Kidney damage with mild decrease in GFR 60-89 3 Moderate decrease in GFR 30-59 4 Severe decrease in GFR 15-29 5 Kidney failure <15 (or dialysis) 3 SEE RESULT BELOW Name: GIO PERALTA : [address]: Maribel Blackman MD Acct: [id number] Unit: [id number] AGE: 54 Location: [facility] Re06/06/19 SEX: F Status: REG REF SPEC: [id number] BRYAN: 06/06/19-[address] [facility] [address]: Maribel Blackman MD REQ: [id number] RECD: 06/06/19-2 STATUS: LUCINA ALVARADO DR: Meseret GREWALNP _ SOURCE: URINE SPDESC: ORDERED: Urine Culture Urine Source: Clean Catch Procedure Result Reported Site Urine Culture Final 06/07/19- 1320 ML No growth of clinically significant organisms * ML - Main Lab . END OF REPORT DEPARTMENT OF PATHOLOGY, [address] [place] [address] Neftaly White M.D. Director [facility] # [id number] Procedures Date Code Description Status 12/13/2017 [id number] Colonoscopy Completed Medical Devices Description No Information Available Encounters Type Date Location Provider Dx Diagnosis Office Visit 05/18/2019 [facility] Maribel Blackman, M25.561 Pain in right 10:45a at [place] M.DEverardo knee M25.461 Effusion, right knee M17.11 Unilateral primary osteoarthritis, right knee Office Visit 05/01/2019 Brock Goodwin M17.11 [facility]ilateral [facility] Ass[facility]ments Date Code Description Provider 06/06/2019 [...] Anjelica Goodwin MD Plan of Treatment Future Appointment(s):06/19/2019 8:15 am - MARS Neumann at [facility] at [place]3806/19/2019 8:15 am - Norbert Martell PA-C at [facility] at [place]/02/2019 9:30 am - Maribel Blackman M.D. at [facility] at Pwhfvk6306/19/2019 8:15 am - Maribel Blackman M.D. at [facility] at [place]0606/06/2019 - Maribel Blackman M.D.M17.11 Unilateral primary osteoarthritis, right kneeFollow up:Follow up: 10-14 days post opM25.561 Pain in right kneeM25.461 Effusion, right knee Functional Status Description No Information Available Mental Status Description No Information Available Referrals Description No Information Available
--- OUTSIDE RECORDS SUMMARY | 2019-06-19 06:04 | XMS REPORT | Continuity of Care Document ---
:1965 External Reference #:[id number] Author Name Anjelica Goodwin MD (transmitted by agent of provider Staci Martins) Address [address] [place] [address] Care Team Providers Name Role Phone Ron Josue MD - Endocrinology, Care Team Information Fermentation Operator [phone] Diabetes & Metabolism Meseret Lizama, N.P. - Family Care Team Information Fermentation Operator [phone] Problems Active Problems Provider Date Localized, primary osteoarthritis Anjelica Goodwin MD Onset: 05/01/2019 Social History Type Date Description Comments Sex Unknown ETOH Use Denies alcohol use Tobacco Use Start: Unknown Patient has never smoked Smoking Status Reviewed: 05/01/19 Patient has never smoked Exercise Type/Frequency Exercises regularly Allergies, Adverse Reactions, Alerts Description No Known Drug Allergies Medications Active Medications SIG Qnty Indications Ordering Date Provider Hydrochlorothiazide Meseret Lizama, 25mg Tablets N.P. Levothyroxine Sodium Meseret Lizama, 100mcg Tablets N.P. Ropinirole HCL Take 1 Tablet Unknown 0.5mg Tablets By Mouth AT Bedtime Immunizations Description No Information Available Vital Signs Date Vital Result Comment 05/01/2019 3:27pm Height 62 inches 5'2" Weight 232.00 lb Heart Rate 94 /min BP Systolic 110 mmHg BP Diastolic 80 mmHg Body Temperature 97.8 F Pain Level 10 BMI (Body Mass Index) 42.4 kg/m2 Results Description No Information Available Procedures Date Code Description Status 12/13/2017 [id number] Colonoscopy Completed Medical Devices Description No Information Available Encounters Description No Information Available Assessments Date Code Description Provider 05/01/2019 M17.11 Unilateral primary osteoarthritis, right knee Anjelica Goodwin MD Plan of Treatment Future Appointment(s):05/18/2019 10:45 am - Maribel Blackman M.D. at [facility]05/01/2019 - Anjelica Goodwin, MDM17.11 Unilateral primary osteoarthritis, right kneeFollow up:Follow up: with Nadeem Blackman or Amaury first available Functional Status Description No Information Available Mental Status Description No Information Available Referrals Description No Information Available
[2019-06-19] MEDS ORDERED: ceFAZolin 2 GM in NS PREMIX(*) 2 GM/100 ML BAG IVPB ONE (06:13)
[2019-06-19] MEDS ORDERED: Midazolam* 1 MG/ML 5 ML VIAL (5 MG) ONE (07:28)
[2019-06-19] MEDS ORDERED: fentaNYL* 50 MCG/ML 2 ML VIAL (100 MCG VIAL) ONE (07:28)
[2019-06-19] MEDS ORDERED: ROPIVACAINE 5 MG/ML 30 ML BTL (0.5%) ONE ×2 (07:34→07:35)
[2019-06-19] MEDS ORDERED: Bupivacaine 0.5% SDV PF* 30ML VIAL ONE (08:19)
[2019-06-19] MEDS ORDERED: Propofol* 10 MG/ML 20 ML BTL ONE (08:27)
[2019-06-19] MEDS ORDERED: Naloxone* 0.4 MG/ML 1 ML VIAL IV PRN (09:25)
[2019-06-19] MEDS ORDERED: Ondansetron INJ* 2 MG/ML VIAL ONE (09:28)
[2019-06-19] MEDS ORDERED: Dexamethasone IV* 4 MG/ML 1 ML (4 MG) ONE (09:28)
[2019-06-19] MEDS ORDERED: Glycopyrrolate IV* 0.2 MG/ML 1 ML VIAL ONE (09:41)
[2019-06-19] MEDS ORDERED: traMADol TAB* 50 MG PO PRN (10:47)
[2019-06-19] MEDS ORDERED: Ondansetron INJ* 2 MG/ML VIAL IV PRN (10:47)
[2019-06-19] MEDS ORDERED: Cyclobenzaprine TAB* 10 MG PO PRN (10:47)
[2019-06-19] MEDS ORDERED: Ondansetron TAB* 4 MG PO PRN (10:47)
[2019-06-19] MEDS ORDERED: diPHENhydraMINE PO* 25 MG PO PRN (10:47)
[2019-06-19] MEDS ORDERED: diPHENhydraMINE IV* 50 MG/ML 1 ml VIAL (BENADRYL) IV PRN (10:47)
[2019-06-19] MEDS ORDERED: Ondansetron ODT TAB* 4 MG PO PRN (10:47)
[2019-06-19] MEDS ORDERED: Magnesium Hydroxide LIQ* 30 ML UDC PO PRN (10:47)
[2019-06-19] MEDS ORDERED: Polyethylene Glycol 3350* 17 GM PACKET PO PRN (10:47)
[2019-06-19] MEDS ORDERED: HYDROmorphone INJ1* 1 MG/ML SYRINGE ONE (10:50)
[2019-06-19] MEDS: HYDROmorphone INJ1* 1 MG/ML SYRINGE IV PRN ×5 (10:52→11:12)
[2019-06-19] MEDS ORDERED: Albuterol HFA INHALER* 8 gm MDI INH PRN ×2 (10:54→12:42)
[2019-06-19] MEDS ORDERED: oxyCODONE/Acetamin 5/325 MG* TAB ONE (11:06)
[2019-06-19] MEDS: oxyCODONE/Acetamin 5/325 MG* TAB PO PRN ×4 (11:10→22:30)
[2019-06-19] MEDS ORDERED: hydrALAZINE IV* 20 MG/ML VIAL IV SLOW PU PRN (12:41)
[2019-06-19] MEDS: Lactated Ringers 1000 ML Bag* 1,000 ML IV SCH ×2 (12:47→23:19)
[2019-06-19] MEDS: Acetaminophen TAB* 325 MG PO SCH ×2 (13:26→22:41)
[2019-06-19] MEDS: oxyCODONE TAB* 5 MG TAB PO PRN ×2 (13:30→18:36)
[2019-06-19] MEDS: Morphine INJ* 2 MG/ML 1 ML SYRINGE (TWO MG - NEW SYRINGE VERSION) IV PRN ×2 (13:30→20:15)
[2019-06-19] MEDS ORDERED: Sevoflurane* BOTTLE ONE (14:06)
--- NOTE | 2019-06-19 14:50 | CONS ---
CC: DEVIKA Horn * CONSULTATION REPORT: DATE OF CONSULT: 06/19/19 TIME OF EVALUATION: 11:15 a.m. PRIMARY CARE PROVIDER: DEVIKA Horn REQUESTING PHYSICIAN: Maribel Blackman MD REASON FOR CONSULTATION: Management of comorbidities. HISTORY OF PRESENT ILLNESS: Ms. Witt is a 54-year-old female with a past medical history of morbid obesity with a BMI of 43, hypertension, asthma, osteoarthritis, hypothyroidism, who has been following with Dr. Blackman due to progressive right knee pain. She was treated as outpatient with antiinflammatories, steroid injections, as well as physical therapy without relief of her symptoms. The patient had a partial meniscectomy of her right knee in the past, but now due to persistence of symptoms, she was agreeable to pursue a right total knee arthroplasty. As per physician financial planning assistant report, the patient's surgery went well with no untoward events. At the time of evaluation, the patient denies chest pain, palpitation, shortness of breath, or other complaints. She is still recovering from anesthesia and she denies any significant knee pain at this time. PAST MEDICAL HISTORY: 1. Hypertension. 2. Asthma. 3. Osteoarthritis. 4. Hypothyroidism. 5. Morbid obesity. PAST SURGICAL HISTORY: 1. Status post cholecystectomy. 2. Status post right knee partial meniscectomy. 3. Status post x2. MEDICATION LIST: 1. Albuterol HFA 2 puffs inhaled daily as needed for shortness of breath. 2. Vitamin C 1000 mg p.o. daily. 3. Hydrochlorothiazide 25 mg p.o. daily. 4. Ibuprofen 600 mg p.o. 4 times a day as needed for pain. 5. Probiotic 1 capsule p.o. daily. 6. Levothyroxine 100 mcg p.o. daily. 7. Multivitamin 1 tablet p.o. daily. 8. Ropinirole 0.5 mg p.o. at bedtime. ALLERGIES: To CIPROFLOXACIN and LATEX. FAMILY HISTORY: Reviewed and noncontributory. SOCIAL HISTORY: There is no history of tobacco, alcohol, or drug use. 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 Surrogate decision maker is her , Dickson Witt , phone number is [phone]. REVIEW OF SYSTEMS: A 14-point review of systems was performed and all the pertinent negative and positive findings are in the HPI. PHYSICAL EXAM: Vital Signs: Temperature 96.8, heart rate is 64, respiratory rate is 20, oxygen saturation 95% on room air, blood pressure is 141/83. General: The patient is a pleasant, morbidly-obese middle age female, lying in bed, in no acute distress. HEENT: Pupils are equal. Moist mucous membranes. CVS: Normal S1, S2. Regular rate and rhythm. Chest: Breath sounds bilaterally with no added sounds. Abdomen is obese. Bowel sounds present. Extremities: The patient has Cryo unit to her right knee and she is starting to recover sensation to her limb. Neuro: She is alert and oriented x3, able to follow commands. ASSESSMENT AND PLAN: Ms. Witt is a 54-year-old female with a past medical history of morbid obesity with a BMI of 43, hypertension, asthma, osteoarthritis , hypothyroidism, admitted for elective right total knee arthroplasty with Dr. Blackman. 1. Status post right total knee arthroplasty. Management as per Ortho. 2. Hypertension. We will monitor her blood pressure and hold hydrochlorothiazide for now as she will be on IV fluids. I will order hydralazine p.r.n. if her blood pressure continues to trend up. 3. Hypothyroidism. We will continue levothyroxine. 4. Asthma, it is stable. The patient will have her albuterol as needed for shortness of breath and wheezing. 5. DVT prophylaxis will be with Eliquis as per Ortho. 6. Code status is full. TIME SPENT: Approximately 50 minutes was spent with the patient's interview, medical records review, physical examination to complete this admission, more than half of this time was spent [id number] with the patient and coordination of care. [id number]/[facility] #: [id number] ANA LAURA
[2019-06-19] MEDS: ceFAZolin 1 GM ADVAN(*) 1 GM in NS 0.9% 50 ML* 50 ML IVPB SCH ×2 (16:15→23:19)
--- NOTE | 2019-06-19 19:29 | OP ---
Operative Report - Blank - Operative Report Date of Operation: 06/19/19 Note: GIO PERALTA 1965 Date of Surgery: 06/19/19 Maribel Blackman MD Animal Herder: Jose Perkins did help throughout the procedure with preparation of the knee, wound retraction, manipulation of the knee, and wound closure. Anesthesiologist: Dr. Cordero Anesthesia Type: Spinal/LMA Preoperative Diagnosis: Right severe degenerative osteoarthritis of the knee Postoperative Diagnosis: As above Procedure Performed: Right Total Knee Arthroplasty Tourniquet time: 48 minutes Complications: None Specimen: Bone and cartilage from the right knee joint sent to pathology. Hardware Used: Cemented Mcknight [employer] Nephew total knee hardware was used - For the femur a size 5 right narrow oxinium legion posterior stabilized femoral component, for the tibia a size 3 right nnamdi II tibial baseplate, for the insert a size 11 mm 3-4 posterior stabilized articular polyethylene insert, and for the patella a size 29 3-peg all poly patella. Brief History/Indication: GIO PERALTA was known in clinic and had a history of severe right knee pain and swelling. She failed conservative treatment with anti-inflammatories, pain pills, intra-articular injections and physical therapy. She elected to undergo right total knee arthroplasty due to continued pain and decreased quality of life. Radiographs showed severe end stage osteoarthritis of the knee with bone on bone contact. Informed consent was obtained from the patient. She understood the risks of surgery included but were not limited to: bleeding, infection, damage to nearby structures, intraoperative fracture, nerve palsy, failure of the hardware, early loosening, knee stiffness or loss of motion, anesthesia complications, stroke, heart attack , blood clot and . She wished to proceed. Intra-Operative Findings: Intraoperatively the patient was noted to have severe loss of cartilage in all 3 compartments of the knee. Description of the Procedure: GIO PERALTA was identified in the preanesthesia unit. Her right knee was marked as the correct operative side. Informed consent was signed and placed in the chart. The patient was taken to the operating room and placed under anesthesia without complication. A eduardo catheter was placed. A tourniquet was placed on the right thigh. The right lower extremity was prepped and draped in the usual sterile fashion. Preoperative time-out was made to correctly identify the patient, side and site. Appropriate intraoperative antibiotics were given within one hour of incision. Tourniquet was inflated. A midline incision was made and carried sharply down to the extensor mechanism. A new 10 blade was used to make a standard medial parapatellar arthrotomy. The patella was subluxed laterally. Electrocautery was used to dissect soft tissue off the superomedial tibia to the midsagittal plane. The knee was flexed up. The anterior horn of the lateral meniscus and the ACL were sharply incised. A drill was used to enter the distal femur. The intramedullary distal femoral cutting guide was pinned on the distal femur. The oscillating saw was used to make the distal femoral cut. The external rotation guide was pinned on the distal femur and the distal femur was sized to a size 5. The size 5 multi-cutting jig was pinned on the distal femur. The oscillating saw was used to make the appropriate 4 chamfer cuts. Next the PCL was completely released. The extramedullary tibial cutting guide was pinned on the proximal tibia and the oscillating saw was used to make the proximal tibial cut perpendicular to the mechanical axis of the tibia. The bone was carefully removed. The knee was brought out into full extension. The spacer block was placed and had excellent fit with the knee in full extension. The medial and lateral ligaments were well balanced. The flexion and extension gaps were well balanced. The knee was flexed up. Lamina it portfolio manager was placed both medially and laterally. Any remaining meniscus was removed with electrocautery. Curved osteotome was used to remove any posterior osteophytes. The tibial tray and drop lei were placed and confirmed a satisfactory tibial cut. The size 5 right narrow femoral trial was impacted onto the distal femur. This trial had excellent fit and stability. The box for the posterior stabilized implant was prepared using a box cut osteotome and a reamer. Next a tibial tray trial and 9 mm insert trial was placed. The knee was taken through a range of motion and had full extension to 130 degrees of flexion. Patellofemoral tracking was satisfactory. The patella was inverted and sized to a size 29. Three peg holes were drilled through the size 29 drill guide. The trial patella was placed and the knee was taken through a range of motion. There was satisfactory patellofemoral tracking. All trials were removed. The tibia was subluxed anteriorly and sized to a size 3. The proximal tibial was prepared with a size 3 keel punch. All bony cut surfaces were irrigated with sterile saline and dried. Final implants were cemented into place starting with the tibia, followed by the femur, and last the patella. A 11 mm insert trial was placed and the knee was brought into full extension. Tourniquet was turned down and the knee was copiously irrigated with sterile saline. Electrocautery was used to obtain meticulous hemostasis. Once the cement had fully cured, the insert trial was removed. Any excess cement was removed from around the hardware and capsule. Final insert chosen was a 11 mm posterior stabilized Nnamdi II articular insert size 3-4. Stability of the insert was checked and noted to be stable. The extensor mechanism was closed using number 1 vicryls. The rest of the incision was closed in a layered fashion using 0 and 2-0 vicryls. The skin was closed using 3-0 nylon suture. Sterile xeroform, 4x4s and webril were used to cover the incision. Richard wrap and cold pack were used to cover the dressings. The patients anesthesia was reversed without difficulty. She was taken to the PACU in stable condition. Intended weight-bearing will be as tolerated.
[2019-06-19] MEDS: Magnesium Hydroxide LIQ* 30 ML UDC PO SCH (20:15)
[2019-06-19] MEDS: Docusate CAP* 100 MG PO SCH (20:15)
[2019-06-19] MEDS ORDERED: Ropinirole TAB* 0.5 MG TAB PO SCH (21:00)
[2019-06-20] MEDS: oxyCODONE TAB* 5 MG TAB PO PRN ×3 (01:25→12:53)
[2019-06-20] MEDS: oxyCODONE/Acetamin 5/325 MG* TAB PO PRN ×3 (04:41→17:36)
[2019-06-20] MEDS: Acetaminophen TAB* 325 MG PO SCH ×2 (05:50→13:56)
[2019-06-20] MEDS ORDERED: Levothyroxine TAB* 50 MCG TAB PO SCH (06:00)
[2019-06-20] MEDS: ceFAZolin 1 GM ADVAN(*) 1 GM in NS 0.9% 50 ML* 50 ML IVPB SCH (07:31)
[2019-06-20 08:30] LABS: Hematocrit 36 % (35-47); Mean Platelet Volume 8.4 fL (7.4-10.4); Platelet Count 95 10^3/uL (150-450)
[2019-06-20 08:41] LABS: BUN/Creatinine Ratio 14.8 (8-20); Blood Urea Nitrogen 8 mg/dL (6-24); CO2 Carbon Dioxide 23 mmol/L (22-32); Calcium 8.7 mg/dL (8.6-10.3); Chloride 99 mmol/L (101-111); EGFR African American 143.5 (>60); EGFR Non-African American 118.6 (>60); Glucose 110 mg/dL (70-100); Sodium 127 mmol/L (135-145)
[2019-06-20] MEDS ORDERED: Apixaban* 2.5 MG TAB PO SCH (09:00)
[2019-06-20] MEDS ORDERED: Hydrochlorothiazide TAB* 25 MG PO SCH (09:00)
[2019-06-20] MEDS ORDERED: Vitamin THERAPEUTIC TAB PO SCH (09:00)
--- NOTE | 2019-06-20 09:33 | PN ---
Progress Note - Progress Note Date of Service: 06/20/19 SOAP: Subjective: []Pt seen and examined at bedside. Feels very well, no complaints. Denies CP, SOB, dizziness, nausea. Objective: []Gen: NAD RLE: Right knee dressing CDI, thigh soft, DF/PF intact, DP2+, sensation intact to light touch distally Calves supple and nontender without erythema, edema or palpable cords Assessment: [] POD 1 sp RTK Plan: []WBAT PT/OT eliquis 2.5 mg po BID Recheck Na tomorrow, hyponatremia recheck plt tomorrow - will discuss decrease with hospitalist to ensure safe to cont eliquis Vital Signs Temp 97.9 F 06/20/19 07:37 Pulse 77 06/20/19 07:37 Resp 16 06/20/19 07:46 BP 149/89 06/20/19 07:37 Pulse Ox 98 06/20/19 07:37 Intake & Output 06/19/19 06/20/19 06/20/19 18:59 06:59 18:59 Intake Total 2250 2105 Output Total 2850 955 200 Balance -600 1150 -200 Intake: IV Fluids 2250 950 LR 2200 950 NS 50ML, Cefazolin 2G 50 IVPB 55 ABX - CEFAZOLIN 55 Oral 1100 Output: Urine 200 [place]lsen 2550 955 Estimated Blood Loss 300 Laboratory Last Values Hgb 12.0 g/dL (12.0-16.0) 06/20/19 07:58 Hct 36 % (35-47) 06/20/19 07:58 Plt Count 95 10^3/uL (150-450) L D 06/20/19 07:58 MPV 8.4 fL (7.4-10.4) 06/20/19 07:58 Sodium 127 mmol/L (135-145) L 06/20/19 07:58 Chloride 99 mmol/L (101-111) L 06/20/19 07:58 Carbon Dioxide 23 mmol/L (22-32) 06/20/19 07:58 BUN 8 mg/dL (6-24) 06/20/19 07:58 Creatinine 0.54 mg/dL (0.51-0.95) 06/20/19 07:58 Est GFR ( Amer) 143.5 (>60) 06/20/19 07:58 Est GFR (Non-Af Amer) 118.6 (>60) 06/20/19 07:58 BUN/Creatinine Ratio 14.8 (8-20) 06/20/19 07:58 Glucose 110 mg/dL (70-100) H 06/20/19 07:58 POC Glucose (mg/dL) 92 mg/dL (70-100) 06/19/19 06:58 Calcium 8.7 mg/dL (8.6-10.3) 06/20/19 07:58
[2019-06-20 10:18] LABS: Anion Gap 5 mmol/L (2-11)
[2019-06-20] MEDS: Docusate CAP* 100 MG PO SCH (10:26)
[2019-06-20] MEDS: Magnesium Hydroxide LIQ* 30 ML UDC PO SCH (10:27)
[2019-06-20] MEDS ORDERED: Potassium Chlor TAB* 20 MEQ TAB.ER PO ONE (12:42)
[2019-06-20] MEDS ORDERED: amLODIPine TAB* 5 MG PO SCH (13:00)
--- NOTE | 2019-06-20 15:20 | DS ---
Orthopedic Discharge Summary - Discharge Summary Date of Admission:06/19/19 Date of Discharge: 06/20/19 Date of Surgery: 06/19/19 Attending Orthopedic Provider: Dr Blackman Pre-operative Diagnosis: right knee osteoarthritis Operative Procedure: right total knee replacement Disposition of Patient: home with outpatient services Condition of Patient: stable History: GIO PERALTA is a 54 year old F with years of increasingly severe right knee pain. Patient has failed conservative management and has elected to undergo a right total knee replacement Hospital Course: GIO was admitted to [facility] on 06/19/19. Patient underwent a right total knee replacement without complication followed by a brief recovery in PACU and transfer to the Short Stay Surgical Unit in stable condition. Our hospitalist service, physical therapy and occupational therapy also participated in this patients care. Post-op day 1: patient was alert and in no acute distress. Dressing was clean, dry and intact. Operative extremity dorsiflexion and plantarflexion intact, sensation intact to light touch distally, DP2+. Prior to discharge: dressing was changed, incision was clean, dry and intact. Patient was deemed to be medically and orthopedically stable for discharge. Physical therapy goals were met. Recommendation from Dr Bill for hyponatremia: hold hctz and recheck sodium in 2 days. To cover her for hypertension Dr Bill sent in amlodipine 5 mg daily. Her platelets are also low, will monitor plt in 2 days as well. Home Medications Medication Instructions Recorded Confirmed Type Multivitamin 1 tab PO QPM 02/18/14 06/19/19 History Hydrochlorothiazide TAB* 25 mg PO QAM 01/26/17 06/19/19 History [Hydrodiuril TAB*] Lactobacillus Acidophilus 1 cap PO QAM 01/26/17 06/19/19 History [Probiotic] Levothyroxine TAB* [Synthroid TAB*] 100 mcg PO QAM 01/26/17 06/19/19 History Ropinirole TAB* [Requip TAB*] 0.5 mg PO BEDTIME 09/07/18 06/19/19 History Albuterol HFA INHALER* [Ventolin 2 puff INH DAILY PRN 06/06/19 06/19/19 History HFA Inhaler*] Ascorbic Acid [Vitamin C] 1,000 mg PO QAM 06/06/19 06/19/19 History Acetaminophen TAB* [Tylenol TAB*] 975 mg PO Q8HR tab 06/20/19 Rx Apixaban* [Eliquis*] 2.5 mg PO BID #60 tab 06/20/19 Rx Docusate CAP* [Colace Cap*] 100 mg PO BID #90 cap 06/20/19 Rx amLODIPine TAB* [Norvasc 5 mg TAB*] 5 mg PO DAILY #7 tab 06/20/19 Rx oxyCODONE/Acetamin 5/325 MG* 2 tab PO Q4H PRN #70 tab MDD 10 06/20/19 Rx [Percocet 5/325 TAB*] Discharge Instructions following Orthopedic Surgery: Activity: * Weight Bearing as tolerated * Continue physical therapy and occupational therapy exercises as shown * Outpatient PT Wound care: * OK to shower on post-op day 3, no bathing, swimming, or submerging wound. * Use gentle soap, pat dry. Cover with gauze, DELANO wrap or tape. Call Orthopedic office for: * Increased drainage * Redness * Increased pain * Fever Go to ER with shortness of breath or chest pain. Diet: * Regular diet * Increase fluids and fiber to prevent constipation. * Continue to use stool softeners, call office if no bowel motion within 48 hours. Medications See Home Medication List in your packet for medications that you should take after discharge. DVT Prophylaxis: Eliquis Dosin.5 mg, 1 tab every 12 hours x 30 days. Increases bleeding tendency Pain Control: Percocet Dosin/325 mg 1-2 tabs by mouth every 4-6 hours as needed for pain. Maximum of 10 tabs per day. Hold for sedation, wean off as soon as pain allows Please note that Percocet contains Tylenol (acetaminophen). Maximum daily dose of Tylenol is 4000 mg from all sources. Antibiotics are required prior to any dental work. Labs: Go to an outpatient lab for a electrolyte and platelet check in 2 days ( Tuesday). Your sodium and platelets were low in the hospital Blood pressure: DO NOT TAKE your hydrochlorothiazide for 5 days due to low sodium. We will check your sodium in 2 days. To cover your blood pressure please take the amlodipine 5 mg daily for the next 5 days. As long as your sodium level comes back as normal and is no longer low, you can resume your hydrochlorothiazide and stop the amlodipine on day 6. FOLLOW UP: Follow up with [Yehuda] Within 10-14 days, call for appointment Please call our office with any questions or concerns ([phone]) RX to [facility]
--- NOTE | 2019-06-20 15:50 | PN ---
Subjective Date of Service: 06/20/19 Interval History: Pt feels well and ready to go home. Objective Active Medications: Acetaminophen (Tylenol Tab*) 975 mg PO Q8HR [facility] Last Admin: 06/20/19 13:56 Dose: Not Given Albuterol (Ventolin Hfa Inhaler*) 2 puff INH Q4H PRN PRN Reason: SOB/WHEEZING Amlodipine Besylate (Norvasc Tab*) 5 mg PO DAILY [facility] Last Admin: 06/20/19 12:54 Dose: 5 mg Apixaban (Eliquis*) 2.5 mg PO BID [facility] Last Admin: 06/20/19 10:26 Dose: 2.5 mg Bisacodyl (Dulcolax Supp*) 10 mg [place] DAILY PRN PRN Reason: CONSTIPATION Cyclobenzaprine HCl (Flexeril Tab*) 10 mg PO Q6H PRN PRN Reason: SPASMS Last Admin: 06/20/19 01:26 Dose: 10 mg Diphenhydramine HCl (Benadryl Iv*) 25 mg IV Q6H PRN PRN Reason: PRURITIS Diphenhydramine HCl (Benadryl Po*) 25 mg PO Q6H PRN PRN Reason: PRURITIS Docusate Sodium (Colace Cap*) 100 mg PO BID [facility] Last Admin: 06/20/19 10:26 Dose: 100 mg Hydralazine HCl (Apresoline Iv*) 5 mg IV SLOW PU Q6H PRN PRN Reason: SBP>180 Lactulose (Lactulose*) 30 ml PO BID PRN PRN Reason: CONSTIPATION Levothyroxine Sodium (Synthroid Tab*) 100 mcg PO 0600 [facility] Last Admin: 06/20/19 05:42 Dose: 100 mcg Magnesium Hydroxide (Milk Of Magnesia Liq*) 30 ml PO BID [facility] Last Admin: 06/20/19 10:27 Dose: 30 ml Magnesium Hydroxide (Milk Of Magnesia Liq*) 30 ml PO Q6H PRN PRN Reason: CONSTIPATION Morphine Sulfate (Morphine Inj (Syringe))*) 2 mg IV Q4H PRN PRN Reason: Pain - Unrelieved Last Admin: 06/19/19 20:15 Dose: 2 mg Multivitamins (Theragran Tab*) 1 tab PO DAILY [facility] Last Admin: 06/20/19 10:26 Dose: 1 tab Ondansetron HCl (Zofran Inj*) 4 mg IV Q6H PRN PRN Reason: NAUSEA Ondansetron HCl (Zofran Odt Tab*) 4 mg PO Q6H PRN PRN Reason: NAUSEA Ondansetron HCl (Zofran Tab*) 4 mg PO Q6H PRN PRN Reason: NAUSEA Oxycodone HCl (Roxycodone Tab*) 5 mg PO Q4H PRN PRN Reason: Pain - Breakthrough Last Admin: 06/20/19 12:53 Dose: 5 mg Oxycodone/Acetaminophen (Percocet 5/325 Tab*) 2 tab PO Q4H PRN PRN Reason: PAIN - SEVERE Last Admin: 06/20/19 10:34 Dose: 2 tab Polyethylene Glycol/Electrolytes (Miralax*) 17 gm PO DAILY PRN PRN Reason: Constipation Ropinirole HCl (Requip Tab*) 0.5 mg PO BEDTIME BUCK Last Admin: 06/19/19 20:16 Dose: 0.5 mg Tramadol HCl (Ultram*) 50 mg PO Q6H PRN PRN Reason: PAIN - MODERATE Last Admin: 06/20/19 07:46 Dose: 50 mg Vital Signs - 8 hr 06/20/19 06/20/19 06/20/19 10:28 10:29 10:34 Temperature Pulse Rate Respiratory 16 16 16 Rate Blood Pressure (mmHg) O2 Sat by Pulse Oximetry 06/20/19 06/20/19 06/20/19 11:18 12:30 12:53 Temperature 97.6 F Pulse Rate 66 Respiratory 16 16 20 Rate Blood Pressure 152/77 (mmHg) O2 Sat by Pulse 97 Oximetry Oxygen Devices in Use Now: None Appearance: 54 yo F in nAD, aAOx3 Eyes: No Scleral Icterus, PERRLA Ears/Nose/Mouth/Throat: NL Teeth, Lips, Gums, Mucous Membranes Moist Neck: NL Appearance and Movements; NL JVP, Trachea Midline Respiratory: Symmetrical Chest Expansion and Respiratory Effort, Clear to Auscultation Cardiovascular: NL Sounds; No Murmurs; No JVD Abdominal: NL Sounds; No Tenderness; No Distention Lymphatic: No Cervical Adenopathy Extremities: - - R knee, post op in cryo unit Skin: No Nodules or Sclerosis Neurological: Alert and Oriented x 3, NL Muscle Strength and Tone Result Diagrams: 06/20/19 07:58 06/20/19 11:20 Assess/Plan/Problems-Billing Assessment: 54 yo f with h/o HTN s/p R knee replacement - Patient Problems (1) Status post right knee replacement Comment: planned for discharge today (2) HTN (hypertension) Comment: due to hyponatremia advised to switch from HCTZ to Norvasc x next 7 days post op (3) Hyponatremia Comment: likley iatrogenic, due to pain meds and IVF F/u with BMP in 2-3 days (4) DVT prophylaxis Comment: Eliquis due to mild thombocytopenia, f/u with CBC in 2-3 days Status and Disposition: Medicine consult
[2019-06-20 15:54] VITALS: BP 155/74
[2019-06-21] MEDS ORDERED: Bisacodyl SUPP* 10 MG SUPP PR PRN (10:47)
== END 2019-06-20 18:04 | disposition home or self-care (01) | DRG 302 ==
LOC: AA 06:01 → SSU 10:47
PROVIDERS: ADMIT Orthopaedic Surgery Adult Reconstructive Orthopaedic Surgery; ATTEND Orthopaedic Surgery Adult Reconstructive Orthopaedic Surgery
PROC: 0SRC069 Replacement of Right Knee Joint with Oxidized Zirconium on Polyethylene Synthetic Substitute, Cemented, Open Approach (ICD-10-PCS; principal; 2019-06-19 07:45)
DX: M17.11 Unilateral primary osteoarthritis, right knee (principal); E87.1 Hypo-osmolality and hyponatremia; Z68.41 Body mass index [BMI] 40.0-44.9, adult; I10 Essential (primary) hypertension; J45.909 Unspecified asthma, uncomplicated; E03.9 Hypothyroidism, unspecified; E66.01 Morbid (severe) obesity due to excess calories; M25.461 Effusion, right knee; M25.761 Osteophyte, right knee; D69.6 Thrombocytopenia, unspecified; Z90.49 Acquired absence of other specified parts of digestive tract; Z88.1 Allergy status to other antibiotic agents; Z91.040 Latex allergy status
CPT/HCPCS: 36415; 80048; 81025; 85014; 85018; 85049; 88305; 88311; A9270-GY; C1776; J0690; J1100; J1170; J2250; J2270; J2405; J2704; J2795; J3010; J3490